=== PATIENT | male | born 1950 | race Caucasian/White ===

== ENCOUNTER 2017-12-21 12:26 | Observation (INO) ==
[2017-12-21 13:15] LABS: Basophils % 0.3 %; Eosinophils % 0.6 %; Hematocrit 38.8 % (37.5-50.1); Hemoglobin 13.4 g/dL (12.9-16.9); Immature Granulocytes % 0.3 % (0-4); Lymphocytes # 0.8 K/mcL (0.6-4.6); Lymphocytes % 23.1 %; Mean Corpuscular HGB Conc 34.5 g/dL (31.6-35.5); Mean Corpuscular Hemoglobin 30.3 pg (28.0-33.3); Mean Corpuscular Volume 87.8 fL (83.0-100.0); Mean Platelet Volume 11.4 fL (9.4-12.4); Monocytes # 0.5 K/mcL (0.0-1.3); Monocytes % 13.3 %; Neutrophils # 2.2 K/mcL (1.6-8.9); Platelet Count 163 K/mcL (140-400); Red Blood Count 4.42 M/mcL (4.19-5.50); Red Cell Distribution Width 13.7 % (11.5-14.5); Segmented Neutrophils % 62.4 %
--- NOTE | 2017-12-21 13:18 | Emergency Department Note ---
Disposition Clinical Impression: Incarcerated right inguinal hernia Disposition: Admitted As Inpatient Condition: Good Instructions: Abdominal Pain (ED) [facility] [[facility]Partnered [facility]] - Time of Disposition: 15:11 Abdominal Pain HPI - General Chief Complaint: ED Abdominal Pain Stated Complaint: [facility] Time Seen by Provider: 12/21/17 12:54 Source: patient Mode of arrival: ambulatory Limitations: no limitations Nursing Notes Reviewed: Yes Vital Signs Reviewed: Yes - History of Present Illness HPI Narrative: 67yom with hx of HTN, carotid stenosis, presents with 2 weeks of right groin pain 6/10 crampy pain after snow shoveling. Went to UC at the [facility] and they did a non contrast CT of the Pelvis that was + for mesenteric ischemia and incarcerated inguinal hernia right. PAtient reports pain with defecating denies hematochezia or melena. Pt Subjective Complaint: abdominal pain Onset (ago): week(s) (2) Consistency: constant, intermittent Location: RLQ Pain Severity: severe Pain Scale: 9 Quality: aching Migration to: other (R groin) Worsens with: bowel movement Associated symptoms: Reports: nausea. Denies: vomiting, diarrhea, fever, chills , hematemesis, hematochezia - Related Data Home Medications Medication Instructions Recorded Confirmed Aspirin [Lo-Dose Aspirin EC] 81 mg PO DAILY 12/21/17 12/21/17 Atorvastatin Calcium [Lipitor] 80 mg PO HS 12/21/17 12/21/17 Diltiazem CD (24hr) [Cardizem CD] 240 mg PO DAILY 12/21/17 Doxycycline 12/21/17 12/21/17 Fish Oil/Dha/Epa [Fish Oil 1,200 1 cap PO DAILY 12/21/17 12/21/17 mg Fish Oil] Lisinopril [Zestril] 40 mg PO DAILY 12/21/17 12/21/17 Multivit-Min/FA/Lycopen/Lutein [A 1 tab PO DAILY 12/21/17 12/21/17 Thru Z Select Men 50+ Tablet] hydroCHLOROthiazide 12.5 mg PO DAILY 12/21/17 12/21/17 [Hydrochlorothiazide] metFORMIN 12/21/17 Allergies Allergy/AdvReac Type Severity Reaction Status Date / Time No Known Allergies Allergy Verified 12/21/17 12:28 All systems ED: reviewed and negative except as stated. Review of Systems: As Per HPI Constitutional: Denies: fever, chills Eyes: Denies: eye pain ENT ED: Denies: ear pain Cardiovascular: Denies: chest pain Respiratory: Denies: cough, dyspnea Gastrointestinal: Reports: as per HPI, abdominal pain, constipation. Denies: nausea, vomiting, diarrhea, melena, hematochezia Genitourinary: Denies: urgency Musculoskeletal: Denies: back pain Integumentary: Denies: rash Neurological: Denies: headache, weakness Psychiatric: Denies: anxiety Endocrine: Denies: fatigue Abdominal Pain PMH - Past Medical History Medical history: Reports: hyperlipidemia, hypertension, renal disease Male Surgical History: Reports: other Psychiatric history: Reports: no psych history - Social History Smoking status: Never smoker Alcohol use: Reports: none Drug use: Reports: none Physical Exam - General Limitations: no limitations General appearance: alert, in no apparent distress - Head Head exam: atraumatic - Eye Eye exam: Present: normal appearance, PERRL - ENT ENT exam: normal exam - Neck Neck exam: Present: normal inspection, full ROM - Chest Chest inspection: Present: normal inspection - Respiratory Respiratory exam: Present: normal lung sounds bilaterally. Absent: respiratory distress - Cardiovascular Cardiovascular exam: Present: regular rate, normal rhythm - Abdominal Exam Abdominal exam: Present: hernia (R groin pain, no scrotal mass, unable to definitively reduce). Absent: tenderness, guarding, rebound - Male exam: Present: normal inspection. Absent: circumcised Scrotal exam: cremasteric reflex present: bilateral - Extremities Exam Extremities exam: Present: normal inspection, full ROM Course Course Narrative: 67yom with right inguinal hernia concern for incarceration unable to definitevly reduce cannot feel firm hernia, Spoke with Dr Stark at 14:30 who will come to evaluate patient after a surgical case. - Reevaluation(s) Reevaluation #1: Patient admitted to Dr Stark Time: 15:10 Vital Signs Temperature 98.3 F 12/21/17 12:28 Pulse Rate 63 12/21/17 12:28 Respiratory Rate 16 12/21/17 12:28 Blood Pressure 167/82 12/21/17 12:28 O2 Sat by Pulse Oximetry 100 12/21/17 12:28 Temperature 98.3 F 12/21/17 12:28 Pulse Rate 60 12/21/17 14:36 Respiratory Rate 16 12/21/17 14:36 Blood Pressure 154/70 12/21/17 14:36 O2 Sat by Pulse Oximetry 98 12/21/17 14:36 Oxygen Delivery Oxygen Delivery Room Air Abdominal Pain - Differential Diagnosis Differential Diagnosis: Likely: acute appendicitis, constipation, colonic obstruction, diverticulitis, diverticulosis, gastroenteritis - Medical Records Medical records reviewed: Yes I reviewed the patient's medical records. - Lab Data Lab results reviewed: Yes I reviewed the patient's lab results. Result diagrams: 12/21/17 13:01 12/21/17 13:01 Lab Results 12/21/17 12/21/17 12/21/17 Range/Units 13:01 13:01 13:27 WBC 3.5 L (4.3-11.1) K/mcL RBC 4.42 (4.19-5.50) M/mcL Hgb 13.4 (12.9-16.9) g/dL Hct 38.8 (37.5-50.1) % MCV 87.8 (83.0-100.0) fL MCH 30.3 (28.0-33.3) pg MCHC 34.5 (31.6-35.5) g/dL RDW 13.7 (11.5-14.5) % Plt Count 163 (140-400) K/mcL MPV 11.4 (9.4-12.4) fL Immature Gran % 0.3 (0-4) % Seg Neutrophils % 62.4 % Lymphocytes % 23.1 % Monocytes % 13.3 % Eosinophils % 0.6 % Basophils % 0.3 % Neutrophils # 2.2 (1.6-8.9) K/mcL Lymphocytes # 0.8 (0.6-4.6) K/mcL Monocytes # 0.5 (0.0-1.3) K/mcL Eosinophils # 0.0 (0.0-0.6) K/mcL Basophils # 0.0 (0.0-0.2) K/mcL Sodium 136 (136-145) mEq/L Potassium 4.2 (3.5-5.1) mEq/L Chloride 104 (98-107) mEq/L Carbon Dioxide 27 (23-29) mEq/L BUN 24 H (8-23) mg/dL Creatinine 1.05 (0.70-1.30) mg/dL Est GFR ( Amer) > 60 (> 60) Est GFR (Non-Af Amer) > 60 (> 60) BUN/Creatinine Ratio 23 (6-26) Glucose 109 H (70-105) mg/dL Calculated Osmolality 287 (280-300) Lactic Acid (0.5-2.2) mmol/L Calcium 10.1 (8.6-10.3) mg/dL Total Bilirubin 0.7 (0.3-1.0) mg/dL Direct Bilirubin 0.1 (0.0-0.2) mg/dL Indirect Bilirubin 0.6 (0.0-1.2) mg/dL AST 24 (13-39) Units/L ALT 23 (7-52) Units/L Alkaline Phosphatase 67 (34-104) Units/L Serum Total Protein 7.5 (6.4-8.9) g/dL Albumin 4.2 (3.5-5.7) g/dL Globulin 3.3 (2.4-3.5) g/dL Albumin/Globulin Ratio 1.3 (1.1-2.2) Lipase 40 (11-82) Units/L Urine Color Yellow (Yellow) Urine Clarity Clear (Clear) Urine pH 6.5 (5.0-8.0) pH Units Ur Specific [place] 1.016 (1.010-1.025) Urine Protein Negative (Neg-Trace) mg/dL Urine Glucose (UA) Normal (Normal) mg/dL Urine Ketones Negative (Negative) mg/dL Urine Blood Negative (Negative) Urine Nitrite Negative (Negative) Urine Bilirubin Negative (Negative) Urine Urobilinogen Normal (Normal) mg/dL Ur Leukocyte Esterase Negative (Negative) Ur Culture Indicated? NO (NO) 12/21/17 Range/Units 13:58 WBC (4.3-11.1) K/mcL RBC (4.19-5.50) M/mcL Hgb (12.9-16.9) g/dL Hct (37.5-50.1) % MCV (83.0-100.0) fL MCH (28.0-33.3) pg MCHC (31.6-35.5) g/dL RDW (11.5-14.5) % Plt Count (140-400) K/mcL MPV (9.4-12.4) fL Immature Gran % (0-4) % Seg Neutrophils % % Lymphocytes % % Monocytes % % Eosinophils % % Basophils % % Neutrophils # (1.6-8.9) K/mcL Lymphocytes # (0.6-4.6) K/mcL Monocytes # (0.0-1.3) K/mcL Eosinophils # (0.0-0.6) K/mcL Basophils # (0.0-0.2) K/mcL Sodium (136-145) mEq/L Potassium (3.5-5.1) mEq/L Chloride (98-107) mEq/L Carbon Dioxide (23-29) mEq/L BUN (8-23) mg/dL Creatinine (0.70-1.30) mg/dL Est GFR ( Amer) (> 60) Est GFR (Non-Af Amer) (> 60) BUN/Creatinine Ratio (6-26) Glucose (70-105) mg/dL Calculated Osmolality (280-300) Lactic Acid 0.6 (0.5-2.2) mmol/L Calcium (8.6-10.3) mg/dL Total Bilirubin (0.3-1.0) mg/dL Direct Bilirubin (0.0-0.2) mg/dL Indirect Bilirubin (0.0-1.2) mg/dL AST (13-39) Units/L ALT (7-52) Units/L Alkaline Phosphatase (34-104) Units/L Serum Total Protein (6.4-8.9) g/dL Albumin (3.5-5.7) g/dL Globulin (2.4-3.5) g/dL Albumin/Globulin Ratio (1.1-2.2) Lipase (11-82) Units/L Urine Color (Yellow) Urine Clarity (Clear) Urine pH (5.0-8.0) pH Units Ur Specific [place] (1.010-1.025) Urine Protein (Neg-Trace) mg/dL Urine Glucose (UA) (Normal) mg/dL Urine Ketones (Negative) mg/dL Urine Blood (Negative) Urine Nitrite (Negative) Urine Bilirubin (Negative) Urine Urobilinogen (Normal) mg/dL Ur Leukocyte Esterase (Negative) Ur Culture Indicated? (NO) - Radiology Data Radiology results reviewed: Yes I reviewed the patient's radiology results. CT Pelvis (from [facility] 12/21/17): R Inguinal hernia containing a loop of small bowel with findings in the mesentery suggesting ischemia, no SBO. Attestation Statement - Attestation Attestation: I, Dustin Lee DO, examined this patient [id number] and my medical decision-making was reviewed with Dr. Federico Francis, Resident Physician. I agree with the documented findings, disposition and treatment plan as described except to the extent set forth below. Please see my progress notes for details. 67-year-old male presents emergency room from the [facility] for evaluation of possible incarcerated hernia with mesenteric stranding. She was evaluated at the bedside here in the ED and had appreciable pain in the right lower quadrant of the abdomen and radiating into the right groin. No palpable mass was noted this time. Patient denies any fevers or chills nausea vomiting or diarrhea chest pain shortness of breath headache or vision change. Pain complains persistent pain in the right groin that is worse while standing. Patient was sent to this facility for definitive management. CT imaging was reviewed. Screening laboratory workup established. Consultation with the on-call operative physician was completed. He took the patient to the operative suite at this time for definitive management. Otherwise labs and imaging were unremarkable at this point during our treatment course and evaluation. Patient is otherwise stable. He left the department in good medical condition. Several attempts at reducing the hernia were completed with no palpable mass noted. See detailed documentation of physical exam, medical intervention, medical decision-making and disposition and the mid-level provider 's note. No critical care follow up with his treatment course
[2017-12-21 13:26] LABS: Alanine Aminotransferase 23 Units/L (7-52); Albumin 4.2 g/dL (3.5-5.7); Albumin/Globulin Ratio 1.3 (1.1-2.2); Alkaline Phosphatase 67 Units/L (34-104); Aspartate Amino Transferase 24 Units/L (13-39); BUN/Creatinine Ratio 23 (6-26); Bilirubin,Direct 0.1 mg/dL (0.0-0.2); Bilirubin,Indirect 0.6 mg/dL (0.0-1.2); Bilirubin,Total 0.7 mg/dL (0.3-1.0); Blood Urea Nitrogen 24 mg/dL (8-23); Calcium 10.1 mg/dL (8.6-10.3); Carbon Dioxide 27 mEq/L (23-29); Chloride 104 mEq/L (98-107); Globulin 3.3 g/dL (2.4-3.5); Glucose 109 mg/dL (70-105); Lipase 40 Units/L (11-82); Osmolality,Calculated 287 (280-300); Potassium 4.2 mEq/L (3.5-5.1); Sodium 136 mEq/L (136-145); Total Protein 7.5 g/dL (6.4-8.9); eGFR For African Americans > 60 (> 60); eGFR For Non-African Americans > 60 (> 60)
[2017-12-21 13:39] LABS: Bilirubin,Urine Negative (Negative); Blood,Urine Negative (Negative); Clarity,Urine Clear (Clear); Color,Urine Yellow (Yellow); Glucose,Urine (UA) Normal (Normal); Ketones,Urine Negative (Negative); Leukocyte Esterase,Urine Negative (Negative); Nitrite,Urine Negative (Negative); PH,Urine 6.5 pH Units (5.0-8.0); Protein,Urine Negative (Neg-Trace); Specific Gravity,Urine 1.016 (1.010-1.025); Urobilinogen,Urine Normal (Normal)
[2017-12-21] MEDS ORDERED: 0.9 % Sodium Chloride 1,000 ML IVC SCH (14:30)
[2017-12-21] MEDS ORDERED: *HR* Propofol 200 MG/20 ML VIAL IVP ONE (15:15)
[2017-12-21] MEDS ORDERED: *HR* FentaNYL (PF) 100 MCG/2 ML VIAL ONE (15:15)
[2017-12-21] MEDS ORDERED: Lidocaine -MPF 2% 2 ML VIAL ONE (15:15)
[2017-12-21] MEDS ORDERED: Ondansetron 4 MG/2 ML VIAL ONE (15:15)
--- NOTE | 2017-12-21 15:15 | Anesthesia Evaluation PreOp ---
Date of Encounter: 12/21/17 Time of Encounter: 15:13 - Past History Planned Operation: L-ureteral stone extraction, Holmium laser Cardiac History: HTN (maintained on Lisinopril, Hctz, Diltiazem), Hyperlipidemia (maintained on Simvastatin) Pulmonary History: Denies Any Significant HX ENGLISH DIVISION CHAIR History: Denies Any Significant HX Other Medical History: Diabetes Type II (Borderline DM maintained on Metformin) Anesthesia History: No Prior Anesthetic Complications, Past Anesthesia (R-CEA 2011, Cataract surgery 2011) Alcohol Use: none Drug use: none Medications and Allergies Aspirin [Lo-Dose Aspirin EC] 81 mg PO DAILY 12/21/17 [History] Atorvastatin Calcium [Lipitor] 80 mg PO HS 12/21/17 [History] Diltiazem CD (24hr) [Cardizem CD] 240 mg PO DAILY 12/21/17 [History] Doxycycline 12/21/17 [History] Fish Oil/Dha/Epa [Fish Oil 1,200 mg Fish Oil] 1 cap PO DAILY 12/21/17 [History] Lisinopril [Zestril] 40 mg PO DAILY 12/21/17 [History] Multivit-Min/FA/Lycopen/Lutein [A Thru Z Select Men 50+ Tablet] 1 tab PO DAILY 12/21/17 [History] hydroCHLOROthiazide [Hydrochlorothiazide] 12.5 mg PO DAILY 12/21/17 [History] metFORMIN 12/21/17 [History] 3 Allergy/AdvReac Type Severity Reaction Status Date / Time No Known Allergies Allergy Verified 12/21/17 12:28 - Meds/Allergy Pre-op Review Medications Reviewed: Yes Allergies Reviewed: Yes Beta Blockers on Current Med List: No Anesthesia Results - Labs 12/21/17 13:01 12/21/17 13:01 Laboratory Results WBC 3.5 K/mcL (4.3-11.1) L 12/21/17 13:01 RBC 4.42 M/mcL (4.19-5.50) 12/21/17 13:01 Hgb 13.4 g/dL (12.9-16.9) 12/21/17 13:01 Hct 38.8 % (37.5-50.1) 12/21/17 13:01 MCV 87.8 fL (83.0-100.0) 12/21/17 13:01 MCH 30.3 pg (28.0-33.3) 12/21/17 13:01 MCHC 34.5 g/dL (31.6-35.5) 12/21/17 13:01 RDW 13.7 % (11.5-14.5) 12/21/17 13:01 Plt Count 163 K/mcL (140-400) 12/21/17 13:01 MPV 11.4 fL (9.4-12.4) 12/21/17 13:01 Immature Gran % 0.3 % (0-4) 12/21/17 13:01 Seg Neutrophils % 62.4 % 12/21/17 13:01 Lymphocytes % 23.1 % 12/21/17 13:01 Monocytes % 13.3 % 12/21/17 13:01 Eosinophils % 0.6 % 12/21/17 13:01 Basophils % 0.3 % 12/21/17 13:01 Neutrophils # 2.2 K/mcL (1.6-8.9) 12/21/17 13:01 Lymphocytes # 0.8 K/mcL (0.6-4.6) 12/21/17 13:01 Monocytes # 0.5 K/mcL (0.0-1.3) 12/21/17 13:01 Eosinophils # 0.0 K/mcL (0.0-0.6) 12/21/17 13:01 Basophils # 0.0 K/mcL (0.0-0.2) 12/21/17 13:01 Sodium 136 mEq/L (136-145) 12/21/17 13:01 Potassium 4.2 mEq/L (3.5-5.1) 12/21/17 13:01 Chloride 104 mEq/L (98-107) 12/21/17 13:01 Carbon Dioxide 27 mEq/L (23-29) 12/21/17 13:01 BUN 24 mg/dL (8-23) H 12/21/17 13:01 Creatinine 1.05 mg/dL (0.70-1.30) 12/21/17 13:01 Est GFR ( Amer) > 60 (> 60) 12/21/17 13:01 Est GFR (Non-Af Amer) > 60 (> 60) 12/21/17 13:01 BUN/Creatinine Ratio 23 (6-26) 12/21/17 13:01 Glucose 109 mg/dL (70-105) H 12/21/17 13:01 Calculated Osmolality 287 (280-300) 12/21/17 13:01 Lactic Acid 0.6 mmol/L (0.5-2.2) 12/21/17 13:58 Calcium 10.1 mg/dL (8.6-10.3) 12/21/17 13:01 Total Bilirubin 0.7 mg/dL (0.3-1.0) 12/21/17 13:01 Direct Bilirubin 0.1 mg/dL (0.0-0.2) 12/21/17 13:01 Indirect Bilirubin 0.6 mg/dL (0.0-1.2) 12/21/17 13:01 AST 24 Units/L (13-39) 12/21/17 13:01 ALT 23 Units/L (7-52) 12/21/17 13:01 Alkaline Phosphatase 67 Units/L (34-104) 12/21/17 13:01 Serum Total Protein 7.5 g/dL (6.4-8.9) 12/21/17 13:01 Albumin 4.2 g/dL (3.5-5.7) 12/21/17 13:01 Globulin 3.3 g/dL (2.4-3.5) 12/21/17 13:01 Albumin/Globulin Ratio 1.3 (1.1-2.2) 12/21/17 13:01 Lipase 40 Units/L (11-82) 12/21/17 13:01 Urine Color Yellow (Yellow) 12/21/17 13:27 Urine Clarity Clear (Clear) 12/21/17 13:27 Urine pH 6.5 pH Units (5.0-8.0) 12/21/17 13:27 Ur Specific [place] 1.016 (1.010-1.025) 12/21/17 13:27 Urine Protein Negative mg/dL (Neg-Trace) 12/21/17 13: Urine Glucose (UA) Normal mg/dL (Normal) 12/21/17 13:27 Urine Ketones Negative mg/dL (Negative) 12/21/17 13:27 Urine Blood Negative (Negative) 12/21/17 13:27 Urine Nitrite Negative (Negative) 12/21/17 13:27 Urine Bilirubin Negative (Negative) 12/21/17 13:27 Urine Urobilinogen Normal mg/dL (Normal) 12/21/17 13:27 Ur Leukocyte Esterase Negative (Negative) 12/21/17 13:27 Ur Culture Indicated? NO (NO) 12/21/17 13:27 Anesthesia Exam Vital Signs Temp Pulse Resp BP Pulse Ox 12/21/17 14:36 60 16 154/70 98 12/21/17 13:12 76 16 179/84 100 12/21/17 12:28 98.3 F 63 16 167/82 100 Intake and Output 12/20/17 12/21/17 12/21/17 23:59 07:59 15:59 Other: Weight 90.718 kg Patient Weight 12/21/17 23:59 Weight 90.718 kg Height: 5'11" Weight: 200# bmi = 28 NPO (# of Hours): mnOC - HEENT Pupil (Motor): Pupils equal, EOMI Mallampati: II Teeth: Normal Oral Opening: Greater than 3 - ENGLISH [employer] LOC: Oriented [employer]ISH [employer] Motor: Normal RUE, Normal LUE, Normal RLE, Normal LLE, Normal Face ENGLISH [employer] Sensory: Normal: RUE, LUE, RLE, LLE, Face - Cardiac Rhythm: Regular Murmur: None - Pulmonary Breath Sounds: bilateral Clear Respiratory Effort: Symmetrical Anesthesia Assess/Plan ASA Score: 3 (pvdZ) Anes Supervising Prov Stmt: Pt seen/evaluated, R&B discussed, questions answered and consent obtained. Saleem Maravilla MD
--- NOTE | 2017-12-21 15:23 | General Surg History&Physical ---
Date of Encounter: 12/21/17 Time of Encounter: 15:15 Assessment and Plan (1) Incarcerated right inguinal hernia Current Visit: Yes Status: Acute The assessment and plan as outlined above was discussed with the patient and/or family members who expressed understanding and agreement. All questions were answered. The patient has incarcerated right inguinal hernia by physical examination and by CAT scan report from the [facility]. I did not personally reviewed the films. The report suggests mesentery changes that could represent ischemia. The hernia is nonreducible. I recommend proceeding with emergent right inguinal hernia repair with possible small bowel resection and laparotomy. I discussed this with the patient. He understands and wishes to proceed. History of Present Illness Chief complaint: Right incarcerated inguinal hernia HPI: Mr. Cheng is a 67 year old male The patient has had right inguinal pain for several months. He has a palpable nonreducible nodule in the right inguinal area. He sought evaluation at the NH. CAT scan demonstrated incarcerated loop of small bowel with the mesentery demonstrating ischemic changes. The patient denies nausea or vomiting. The patient had a bowel movement this morning. He has not previously had abdominal surgery or hernia repair. He has had right carotid endarterectomy with no preoperative complications. He denies shakes chills or fever. He denies rectal bleeding. He now presents for emergent repair of incarcerated right inguinal hernia with possible small bowel resection Past Med Surg Social Fam HX - Past Medical History Medical history: hyperlipidemia, hypertension, renal disease Psychiatric history: no psych history - Past Surgical History Surgical History: carotid endarterectomy (right) - Social History Smoking Status: Never smoker Alcohol use: none Drug use: none Medications and Allergies Aspirin [Lo-Dose Aspirin EC] 81 mg PO DAILY 12/21/17 [History] Atorvastatin Calcium [Lipitor] 80 mg PO HS 12/21/17 [History] Diltiazem CD (24hr) [Cardizem CD] 240 mg PO DAILY 12/21/17 [History] Doxycycline 12/21/17 [History] Fish Oil/Dha/Epa [Fish Oil 1,200 mg Fish Oil] 1 cap PO DAILY 12/21/17 [History] Lisinopril [Zestril] 40 mg PO DAILY 12/21/17 [History] Multivit-Min/FA/Lycopen/Lutein [A Thru Z Select Men 50+ Tablet] 1 tab PO DAILY 12/21/17 [History] hydroCHLOROthiazide [Hydrochlorothiazide] 12.5 mg PO DAILY 12/21/17 [History] metFORMIN 12/21/17 [History] 3 Allergy/AdvReac Type Severity Reaction Status Date / Time No Known Allergies Allergy Verified 12/21/17 12:28 Review of Systems All systems PM: The remainder of the systems were reviewed and are negative General Surgery Exam Initial Vital Signs Temp Pulse Resp BP Pulse Ox 98.3 F 63 16 167/82 100 12/21/17 12:28 12/21/17 12:28 12/21/17 12:28 12/21/17 12:28 12/21/17 12:28 - General physical appearance well developed, well nourished, no distress - Neck no masses, no bruits, trachea midline, no lymphadectomy, no venous distension - Respiratory normal expansion, normal respiratory effort, clear to percussion, clear to auscultation - Cardiovascular Cardiovascular exam: Present: RRR, no murmurs/rubs/gallops - Abdomen Abdomen general surgery: Present: bowel sounds present, soft, non tender - Genitourinary Present: other (Incarcerated right inguinal hernia. Nonreducible) - Neurologic Present: CN 2-12 grossly intact, normal coordination, normal sensation - Psychiatric Psychiatric general surgery: Present: appropriate, oriented to person, oriented to place, oriented to time, speech is normal, memory intact Results - Labs 12/21/17 13:01 12/21/17 13:01 Abnormal lab results WBC 3.5 K/mcL (4.3-11.1) L 12/21/17 13:01 BUN 24 mg/dL (8-23) H 12/21/17 13:01 Glucose 109 mg/dL (70-105) H 12/21/17 13:01 All other labs normal.
[2017-12-21] MEDS ORDERED: *HR* Succinylcholine 200 MG/10 ML VIAL IVP ONE (15:26)
[2017-12-21] MEDS ORDERED: Lidocaine -MPF 4% 5 ML AMPUL ONE (15:26)
[2017-12-21] MEDS ORDERED: Dexamethasone 4 MG/ML VIAL ONE (15:26)
[2017-12-21] MEDS ORDERED: Famotidine 20 MG/2 ML VIAL ONE (15:41)
[2017-12-21] MEDS ORDERED: Acetaminophen IV 1,000 MG/100 ML INFUS..BTL ONE (15:42)
[2017-12-21] MEDS ORDERED: Metoclopramide 10 MG/2 ML VIAL ONE (15:43)
[2017-12-21] MEDS ORDERED: EPHEDrine 50 MG/ML VIAL ONE (15:53)
[2017-12-21] MEDS ORDERED: ceFAZolin 2,000 MG in Water for inj. (sterile) 20 ML IVP ONE (16:19)
[2017-12-21] MEDS ORDERED: *HR* Labetalol 20 MG/4 ML SYRINGE IVP PRN (16:27)
[2017-12-21] MEDS ORDERED: *HR* OxyCODONE Immed Rel 5 MG TABLET PO PRN (16:27)
[2017-12-21] MEDS ORDERED: MORPHINE SUL Oral CONC 10 MG/0.5 ML ORAL.SYG SL PRN (16:27)
[2017-12-21] MEDS ORDERED: *HR* Promethazine 25 MG/ML VIAL IVP PRN (16:27)
[2017-12-21] MEDS ORDERED: CeFAZolin Syringe 2,000MG/20 ML SYR IVPB ONE (16:42)
[2017-12-21] MEDS ORDERED: Ketorolac 30 MG/ML VIAL ONE (16:45)
[2017-12-21] MEDS ORDERED: *HR* Rocuronium Bromide 50 MG/5 ML VIAL ONE (16:52)
--- NOTE | 2017-12-21 16:57 | Operative Note ---
Date of procedure: 12/21/17 Pre-op diagnosis: Incarcerated right inguinal hernia with abnormal CAT scan of the abdomen Post-op diagnosis: other (Incarcerated inguinal hernia) Procedure: #1 repair of incarcerated inguinal hernia with mesh #2 placement of temporary pain pump Anesthesia: CATINA Surgeon: Mina Stark Was there an sourcing assistant present: Yes Nuclear Design Engineer: Elizabeth Jones Estimated blood loss (cc): 50 Specimen: Hernia sac Condition: stable Disposition: PACU Procedure in Detail: After informed consent the patient was taken to the major operative suite placed in supine position given adequate general anesthetic. The abdomen and right groin were prepped and draped in sterile fashion utilizing Betadine solution standard techniques. Timeout was taken and the patient was identified. The lateralizing nancy was identified. I made an oblique incision and dissected down the level of the external abdominal oblique. During the dissection the hernia spontaneously reduced. I divided the external abdominal oblique from lateral to medial through the external ring. The spermatic cord was surrounded. The patient had a large indirect inguinal hernia defect. I divided the spermatic cord cremasteric fibers and isolated the hernia sac. This was opened and high ligated. There is no evidence of any adhesions. No evidence of bowel necrosis. I high ligated being indirect inguinal hernia sac under direct vision. This was then amputated area I re-created the internal ring using a Denisse mesh. This was affixed to the shelving edge of Poupart's ligament inferiorly with running 2-0 Prolene and to the arcuate ligament and internal abdominal oblique musculature with running 2-0 Prolene. 2 lateral [id number] stitches were used to close the upper and lower lateral extensions thus re-creating the internal ring. This gave an excellent technical result. Blood loss was slightly more than usual at 50 mL. I then dissected between the internal and external abdominal oblique musculature there is a lateral incision using a #15 blade and I used a trocar peel-away sheath mechanism to introduce the on cue pain pump catheter. This was done between the internal and external abdominal oblique. I then secured the catheter and attached the terminal reservoir. The flow Marcaine was started. I closed the external abdominal oblique with interrupted 2-0 Vicryl subcutaneous tissue with interrupted 2-0 Vicryl and skin was closed with running 4-0 Vicryl he tolerated the procedure well.
[2017-12-21] MEDS ORDERED: Ondansetron 4 MG/2 ML VIAL IVP PRN (17:43)
[2017-12-21] MEDS ORDERED: OXYCODONE Oral CONC 10 MG/0.5 ML ORAL.SYG SL PRN (17:43)
[2017-12-21] MEDS ORDERED: *HR* OxyCODONE/APAP 5/325 TABLET PO PRN (17:43)
[2017-12-21] MEDS ORDERED: *HR* Metformin 500 MG TABLET PO SCH (18:00)
[2017-12-21] MEDS: 0.9 % Sodium Chloride 1,000 ML IVC SCH (18:23)
[2017-12-21] MEDS: *HR* Metoprolol 5 MG/5 ML VIAL IVP PRN (19:28)
[2017-12-21] MEDS: Gabapentin 100 MG CAPSULE PO SCH (20:21)
[2017-12-21] MEDS ORDERED: CLOBETASOL PROPIONATE 15 GM TUBE TP SCH (21:00)
[2017-12-21] MEDS: CeFAZolin Premix DUPLEX 2,000 MG/50 ML BAG IVPB SCH (23:53)
[2017-12-22] MEDS ORDERED: Acetaminophen 325 MG TABLET PO PRN (00:01)
[2017-12-22] MEDS: *HR* Metoprolol 5 MG/5 ML VIAL IVP PRN (04:23)
[2017-12-22 06:22] LABS: Hematocrit 38.8 % (37.5-50.1); Hemoglobin 13.4 g/dL (12.9-16.9); Immature Granulocytes % 0.2 % (0-4); Lymphocytes # 0.4 K/mcL (0.6-4.6); Lymphocytes % 9.7 %; Mean Corpuscular HGB Conc 34.5 g/dL (31.6-35.5); Mean Corpuscular Hemoglobin 30.2 pg (28.0-33.3); Mean Corpuscular Volume 87.4 fL (83.0-100.0); Monocytes # 0.1 K/mcL (0.0-1.3); Monocytes % 2.6 %; Neutrophils # 3.7 K/mcL (1.6-8.9); Platelet Count 171 K/mcL (140-400); Red Blood Count 4.44 M/mcL (4.19-5.50); Red Cell Distribution Width 13.6 % (11.5-14.5); Segmented Neutrophils % 87.5 %
[2017-12-22 07:05] LABS: BUN/Creatinine Ratio 22 (6-26); Blood Urea Nitrogen 21 mg/dL (8-23); Calcium 9.4 mg/dL (8.6-10.3); Carbon Dioxide 23 mEq/L (23-29); Chloride 103 mEq/L (98-107); Glucose 176 mg/dL (70-105); Osmolality,Calculated 285 (280-300); Potassium 4.1 mEq/L (3.5-5.1); Sodium 134 mEq/L (136-145); eGFR For African Americans > 60 (> 60); eGFR For Non-African Americans > 60 (> 60)
[2017-12-22 07:22] VITALS: BP 173/77
[2017-12-22] MEDS: 0.9 % Sodium Chloride 1,000 ML IVC SCH (08:13)
[2017-12-22] MEDS: Gabapentin 100 MG CAPSULE PO SCH (08:14)
[2017-12-22] MEDS: CeFAZolin Premix DUPLEX 2,000 MG/50 ML BAG IVPB SCH (08:15)
--- NOTE | 2017-12-22 08:48 | Discharge Summary ---
<Yamilka Greenberg H - Last Filed: 12/22/17 09:44> Date of Encounter: 12/22/17 Time of Encounter: 08:37 - Discharge Diagnosis (1) Incarcerated right inguinal hernia Priority: Primary Status: Acute - Discharge Medications Prescriptions: OxyCODONE/APAP 5/325 [Percocet 5/325 MG] 1 each PO Q6HR PRN 7 Days #28 tablet PRN Reason: Pain (1-5) Ibuprofen 600 mg PO Q8HR PRN #60 tablet PRN Reason: Pain Docusate [Colace] 100 mg PO BID #30 capsule Home Medications: Aspirin 81 mg PO DAILY 12/21/17 [History] Atorvastatin Calcium [Lipitor] 80 mg PO HS 12/21/17 [History] Clobetasol Propionate [Temovate] 1 appl TP BID 12/21/17 [History] Diltiazem CD (24hr) [Cardizem CD] 240 mg PO DAILY 12/21/17 [History] Doxycycline Monohydrate [Avidoxy] 100 mg PO DAILY 12/21/17 [History] Gabapentin [Neurontin] 100 mg PO BID 12/21/17 [History] Lipo Flavonoid 1 tab PO TID PRN 12/21/17 [History] Lisinopril [Zestril] 40 mg PO DAILY 12/21/17 [History] Metformin HCl [Metformin HCl ER] 500 mg PO QPM 12/21/17 [History] Multivit-Min/FA/Lycopen/Lutein [A Thru Z Select Men 50+ Tablet] 1 tab PO DAILY 12/21/17 [History] Multivitamin-Min/Iron/FA/Vit K [Multi-Day Plus Minerals Tablet] 1 each PO DAILY 12/21/17 [History] Arco-3/Dha/Epa/Fish Oil [Fish Oil 1,000 mg Softgel] 1,000 mg PO DAILY 12/21/17 [History] hydroCHLOROthiazide [Hydrochlorothiazide] 12.5 mg PO DAILY 12/21/17 [History] Docusate [Colace] 100 mg PO BID #30 capsule 12/22/17 [Rx] Ibuprofen 600 mg PO Q8HR PRN #60 tablet 12/22/17 [Rx] OxyCODONE/APAP 5/325 [Percocet 5/325 MG] 1 each PO Q6HR PRN 7 Days #28 tablet [Rx] Allergies/Adverse Reactions: 3 Allergy/AdvReac Type Severity Reaction Status Date / Time No Known Allergies Allergy Verified 12/21/17 12:28 General Surgery Exam Initial Vital Signs Temp Pulse Resp BP Pulse Ox 98.3 F 63 16 167/82 100 12/21/17 12:28 12/21/17 12:28 12/21/17 12:28 12/21/17 12:28 12/21/17 12:28 - General physical appearance well developed, well nourished, no distress - Respiratory normal expansion, normal respiratory effort, clear to percussion, clear to auscultation - Cardiovascular Cardiovascular exam: Present: RRR, no murmurs/rubs/gallops - Abdomen Abdomen general surgery: Present: bowel sounds present, soft, non tender. Absent: guarding, rebound, rigid Hernia: Present: none - Incision Incision: Present: clean and dry, intact - Neurologic Present: CN 2-12 grossly intact, normal coordination, normal sensation - Psychiatric Psychiatric general surgery: Present: A&Ox3 Date of admission: 12/21/17 15:07 Primary care physician: PCP [place] Discharging clinician: Mina Stark Anticipated date of discharge: 12/22/17 - Patient Status Disposition: Home, Self-Care Condition: Good Overall status at discharge: patient is progressing back to baseline - Discharge Instructions Instructions: Inguinal Hernia (DC), Inguinal Hernia (GEN) Follow Up With: Sulma Kuhn COURIER [Advanced Practice Nurse] - 01/03/18 2:30 pm Forms: ED Satisfaction Letter, Work/School Release Additional Instructions: 1. No pushing, pulling, or lifting greater than 15 lbs for 6 weeks. 2. You may shower beginning today, but no tub baths, soaking, or swimming for 2 weeks. 3. You may resume driving when you are off narcotics and are safe to react in a car. 4. Take ibuprofen every 8 hours if needed for discomfort. If this does not relieve discomfort, you may take the as needed Percocet. Take narcotics only as directed. Do not take more narcotics then directed and do not share your narcotics with any other person. Do not drink alcohol while on narcotics. 5. Take stool softeners (Colace) or a water based laxative (Miralax) while taking narcotics. You may hold for loose stools. 6. Report any fevers greater than 100.5F, increase abdominal discomfort, drainage that looks like pus, increased redness or pain at the surgical site, or any vomiting. 7. Report any pain in the calves, shortness of breath, or rapid heartbeat. 8. Follow-up in the office as directed. 9. If you were prescribed antibiotics, do not stop them without talking to your provider. Please remove your temporary pain pump by simply removing the tape and pulling the tube from your skin tomorrow. - Diet and Activity Activity: increase activity as tolerated Diet: advance to your usual diet - Hospital Course Hospital course: Mr. Cheng is a 67 year old male with past medical history hyperlipidemia, hypertension, and renal disease who presented to [facility] on 12/21/2017 with complaints of right lower quadrant abdominal pain. Patient presented with a palpable, nonreducible nodulein the right inguinal area. He initially sought evaluation at the [facility] with CT scan imaging demonstrating an incarcerated loop of small bowel with mesentery demonstrating ischemic changes. On initial examination, the patient denied nausea or vomiting. Patient was taken to the operating room for emergent repair of suspected incarcerated right inguinal hernia with possible bowel resection. In the operating room, there was no evidence of adhesions or bowel necrosis. The patient underwent a repair of incarcerated inguinal hernia with mesh and placement of a temporary pain pump. This morning, the patient is resting comfortably. He states his pain is well controlled, he is passing gas and having a bowel movement. He is ambulating without difficulty. He stated that he was comfortable for discharge from the hospital today. All questions and concerns were answered. The patient was given return instructions on any worsening abdominal pain, return of nausea vomiting, or development of fevers or chills. - Time Spent with Patient Total time spent providing and/or coordinating discharge services: Less than 30 minutes Labs on day of discharge: Labs from last 24 hours 12/22/17 12/22/17 12/21/17 04:48 04:48 18:18 WBC 4.2 L RBC 4.44 Hgb 13.4 Hct 38.8 MCV 87.4 MCH 30.2 MCHC 34.5 RDW 13.6 Plt Count 171 MPV 12.0 Immature Gran % 0.2 Seg Neutrophils % 87.5 Lymphocytes % 9.7 Monocytes % 2.6 Eosinophils % 0.0 Basophils % 0.0 Neutrophils # 3.7 Lymphocytes # 0.4 L Monocytes # 0.1 Eosinophils # 0.0 Basophils # 0.0 Sodium 134 L Potassium 4.1 Chloride 103 Carbon Dioxide 23 BUN 21 Creatinine 0.94 Est GFR ( Amer) > 60 Est GFR (Non-Af Amer) > 60 BUN/Creatinine Ratio 22 Glucose 176 H POC Glucose 117 H Calculated Osmolality 285 Calcium 9.4 <Mina Stark - Last Filed: 12/24/17 08:38> Date of Encounter: 12/22/17 - Discharge Diagnosis (1) Incarcerated right inguinal hernia Status: Acute General Surgery Exam Initial Vital Signs Temp Pulse Resp BP Pulse Ox 98.3 F 63 16 167/82 100 12/21/17 12:28 12/21/17 12:28 12/21/17 12:28 12/21/17 12:28 12/21/17 12:28 Date of admission: 12/21/17 15:07 Primary care physician: PCP [place] - Hospital Course Hospital course: Mr. Cheng is a 67 year old male - Time Spent with Patient Total time spent providing and/or coordinating discharge services: - Attending Attestation I have personally performed a face to face evaluation on this patient. I have reviewed and agree with the care plan. History and Exam by me shows: The patient is seen and evaluated on morning rounds. The patient had repair of right internal hernia. Incarceration reduced spontaneously with general anesthetic. His abdomen is completely benign today. He will be discharged home. Mina Stark MD FACS
[2017-12-22] MEDS ORDERED: Aspirin 81 MG TAB.CHEW PO SCH (09:00)
[2017-12-22] MEDS ORDERED: Diltiazem CD (24hr) 240 MG CAPSULE PO SCH (09:00)
[2017-12-22] MEDS ORDERED: Lisinopril 20 MG TABLET PO SCH (09:00)
[2017-12-22] MEDS ORDERED: hydroCHLOROthiazide 25 MG TABLET PO SCH (09:00)
== END 2017-12-22 10:43 | disposition home or self-care (01) ==
LOC: EMEROO 12:26 → 3ANU 12:26
PROVIDERS: ADMIT Surgery; ATTEND Surgery